=== PATIENT | male | born 2000 | race Two or more races ===

== ENCOUNTER 2024-07-21 14:18 | Inpatient (IN) | payer MEDICAID, OTHER ==
[~2024-07-21] VITALS: Ht 172.7 cm; Wt 87.7 kg
--- NOTE | 2024-07-21 14:54 | ED.PDOC ---
GI ASSESSMENT HPI Comments 23y M who presents to the ED for chief complaint of rectal pain. Pt states last night PM, he noticed a ingrown hair and irregularity on the R side of his rectum with noted rectal pain. Pt states he is pain pain when sitting down. Pt otherwise denies constipation, diarrhea, fever, cough, chills, chest pain, or shortness of breath. Pt otherwise denies any other symptoms at this time. Pt has temp of 100.2 F, heart rate of 112, and BP of 91/56 with otherwise all other vitals in normal range. Chief Complaint: Rectal Pain Time Seen by MD: 14:51 Primary Care Provider: VIPIN Reviewed Notes: Nurses Notes, Medications, Allergies Allergies: Coded Allergies: Latex (Verified Allergy, Severe, 07/21/24) Information Source: Patient Mode of Arrival: Ambulatory Brought in by: self Timing: Hours Duration: Since onset Prehospital treatment: None Quality: None Vomitus: None Stool: Normal Severity: Moderate Recent: None Recent Hx of: None Pain Location: Other (rectal pain) Modifying Factors: Position Associated sign and symptoms: None Past Medical History PAST MEDICAL HISTORY: Denies Surgical History (Other): congenital heart surgery Family History Family History: Reviewed,noncontributory to illness Social History Smoker: Non-Smoker Alcohol: Denies ETOH Use Drugs: Denies Drug Use Lives In: Home Constitutional: denies: chills, diaphoresis, fatigue, fever, malaise, sweats, weakness, others EENTM: denies: blurred vision, double vision, ear bleeding, ear discharge, ear drainage, ear pain, ear ringing, eye pain, eye redness, hearing loss, mouth pain, mouth swelling, nasal discharge, nose bleeding, nose congestion, nose pain, photophobia, tearing, throat pain, throat swelling, voice changes, others Respiratory: denies: cough, hemoptysis, orthopnea, SOB at rest, shortness of breath, SOB with excertion, stridor, wheezing, others Cardiovascular: denies: chest pain, dizzy spells, diaphoresis, Dyspnea on exertion, edema, irregular heart beat, left arm pain, lightheadedness, palpitations, PND, syncope, others Gastrointestinal: reports: rectal pain; denies: abdomen distended, abdominal pain, blood streaked bowels, constipated, diarrhea, dysphagia, difficulty swallowing, hematemesis, melena, nausea, poor appetite, poor fluid intake, rectal bleeding, vomiting, others Genitourinary: denies: burning, dysuria, flank pain, frequency, hematuria, incontinence, penile discharge, penile sore, pain, testicle pain, testicle swelling, urgency, others Neurological: denies: dizziness, fainting, headache, left sided numbness, left sided weakness, numbness, paresthesia, pre-existing deficit, right sided n umbness, right sided weakness, seizure, speech problems, tingling, tremors, weakness, others Musculoskeletal: denies: back pain, gout, joint pain, joint swelling, muscle pain, muscle stiffness, neck pain, others Integumetry: denies: bruises, change in color, change in hair/nails, dryness, laceration, lesions, lumps, rash, wounds, others Allergic/Immunocompromised: denies: Difficulty Healing, Frequent Infections, Hives, Itching, others Hematologic/Lymphatic: denies: anemia, blood clots, easy bleeding, easy bruising, swollen glands, others Endocrine: denies: excessive hunger, excessive sweating, excessive thirst, excessive urination, flushing, intolerance to cold, intolerance to heat, unexplained weight gain, unexplained weight loss, others Psychiatric: denies: anxiety, bipolar disorder, depression, hopeless, panic disorder, schizophrenia, sleepless, suicidal, others All Other Systems: Reviewed and Negative Physical Exam General Appearance: Moderate Distress HEENT: Normal ENT Inspection, Pharynx Normal, TMs Normal Neck: Full Range of Motion, Non-Tender, Normal, Normal Inspection Respiratory: Chest Non-Tender, Lungs Clear, No Accessory Muscle Use, No Respiratory Distress, Normal Breath Sounds Cardiovascular: No Edema, No JVD, No Murmur, No Gallop, Normal Peripheral Pulses, Regular Rate/Rhythm Breast Exam: Deferred Gastrointestinal: No Organomegaly, Non Tender, No Pulsatile Mass, Normal Bowel Sounds, Soft Genitalia: Deferred Pelvic: Deferred Rectal: Tenderness (Tenderness around the perirectal area but no sign of any fluctuance) Extremities: No calf tenderness, Normal capillary refill, Normal inspection, Normal range of motion, Non-tender, No pedal edema Musculoskeletal : Apperance: Normal Neurologic: Alert, journeyman pressman II-XII nml as Tested, No Motor Deficits, Normal Affect, Normal Mood, No Sensory Deficits Cerebellar Function: Normal Reflexes: Normal Skin: Dry, Normal Color, Warm Lymphatic: No Adenopathy Was a procedure done? Was a procedure done?: No GI differential Dx Differential Diagnosis: Constipation, Stress Ulcer Other Differential Diagnosis hemorrhoids, anal fissure, X-Ray, Labs, Meds, VS Vital Signs Date Time Temp Pulse Resp B/P (MAP) Pulse Ox O2 Delivery O2 Flow Rate FiO2 07/21/24 15:58 98.4 07/21/24 15:58 78 12 125/81 07/21/24 15:10 98 15 98 Room Air* 0 21 07/21/24 15:06 98 15 135/77 07/21/24 15:06 99 18 135/77 (96) 94 07/21/24 15:04 100.2 07/21/24 14:43 100.2 112 18 91/56 (68) 98 100.2 07/21/24 14:43 112 18 98 Room Air 07/21/24 14:39 100.2 112 18 91/56 (68) 98 100.2 Lab Test 07/21/24 15:30 07/21/24 14:53 Range/Units Lactic Acid Level 1.5 0.4-2.0 mmol/L White Blood Count 12.0 H 4.4-10.8 10^3/uL Red Blood Count 5.06 4.5-5.90 10^6/uL Hemoglobin 14.8 13.5-17.5 g/dL Hematocrit 43.1 41.0-53.0 % Mean Corpuscular Volume 85.1 80.0-100.0 fL Mean Corpuscular Hemoglobin 29.3 28.0-32.0 pg Mean Corpuscular Hemoglobin Concent 34.4 32.0-36.0 g/dL Red Cell Distribution Width 13.7 11.8-14.3 % Platelet Count 246 140-450 10^3/uL Mean Platelet Volume 8.3 6.9-10.8 fL Neutrophils (%) (Auto) 65.1 37.0-80.0 % Lymphocytes (%) (Auto) 23.5 10.0-50.0 % Monocytes (%) (Auto) 9.3 0.0-12.0 % Eosinophils (%) (Auto) 1.7 0.0-7.0 % Basophils (%) (Auto) 0.4 0.0-2.0 % Neutrophils # (Auto) 7.8 1.6-8.6 10 ^3/uL Lymphocytes # (Auto) 2.8 0.4-5.4 10 ^3/uL Monocytes # (Auto) 1.1 0-1.3 10 ^3/uL Eosinophils # (Auto) 0.2 0-0.8 10 ^3/uL Basophils # (Auto) 0 0-0.2 10 ^3/uL Nucleated Red Blood Cells 0.1 % Prothrombin Time 10.3 9.3-11.8 sec Prothrombin Time INR 0.97 0.9-1.15 Activated Partial Thromboplast Time 25.8 24.5-34.5 SEC Sodium Level 142 136-145 mmol/L Potassium Level 3.9 3.5-5.1 mmol/L Chloride Level 106 98-107 mmol/L Carbon Dioxide Level 27 20-31 mmol/L Anion Gap 9 5-15 Blood Urea Nitrogen 13 9-23 mg/dL Creatinine 1.12 0.700-1.30 mg/dL Glomerular Filtration Rate Calc 96 >90 mL/min BUN/Creatinine Ratio 11.6 10.0-20.0 Serum Glucose 121 H 74-106 mg/dL Calcium Level 10.1 8.7-10.4 mg/dL Current Medications Medications (Trade) Dose Ordered Sig/Hair Route Start Time Stop Time Status Last Admin Ondansetron HCl (Zofran) 4 mg ONCE ONCE IV 07/21/24 14:45 07/21/24 14:46 DC 07/21/24 15:05 Morphine Sulfate 4 mg ONCE ONCE IV 07/21/24 14:45 07/21/24 14:46 DC 07/21/24 15:06 Sodium Chloride 1,000 ml @ 1,000 mls/hr Q1H ONCE IV 07/21/24 15:15 07/21/24 16:14 DC 07/21/24 15:05 Acetaminophen (Tylenol Tablet) 650 mg ONCE ONCE PO 07/21/24 15:15 07/21/24 15:16 DC 07/21/24 15:04 Scan of the abdomen and pelvis shows a distended stomach but no sign of any masses seen The CBC shows an elevated white blood cell count of 12.0 The rest of the chemistry panel is within normal limits The patient was given 1 L bolus of normal saline The patient was given acetaminophen 650 mg by mouth For the pain, the patient was given morphine 4 mg IV push for the pain The patient was given Zofran 4 mg IV push for the nausea At this time, the patient was still has pain in his being admitted The patient was started on Flagyl IV piggyback Images Reviewed?: Images reviewed and evaluated by me Time of 1ST Reevaluation: 15:20 Reevaluation 1ST: Unchanged Patient Education/Counseling: Diagnosis, Treatment, Prognosis Family Education/Counseling: No Family Present Additional Information -Reviewed patient's previous visit(s): - The following tests were ordered, and results were reviewed by me:cbc, ct abd pelvis non-con, ptptt, bmp, - Additional information was gathered from interviewing the following independent Historian: patient - I reviewed and agreed with the following test results read by other provider: radiologist - I discussed treatments and results with medical personnel and: patient Comprehensive systems review obtained and negative except for what is stated in the HPI. Departure 1 Departure Time of Disposition: 17:28 Impression: Primary Impression: Acute abdominal pain Additional Impressions: Rectal pain Leukocytosis Qualified Codes: D72.829 - Elevated white blood cell count, unspecified Disposition: 09 ADMITTED INPATIENT Admit to: Med Surg Condition: Fair Critical Care Note Critical Care Time?: No Stability Stability form required: Yes Unstable for transfer: ED Physician Assesment (Clinical assesment) Heart Score Heart Score: Heart Score Response (Comments) Value History N/A 0 EKG N/A 0 Age N/A 0 Risk Factors N/A 0 Troponin N/A 0 Total 0 I personally scribed for MICHEAL ORNELAS MD ([email or web address]) on 07/21/24 at 14:54. Electronically submitted by Paresh Zaman ([email or web address]). MICHEAL ORNELAS MD Jul 21, 2024 14:54
[2024-07-21 15:00] LABS: Basophils # (auto) 0 10 ^3/uL (0-0.2); Basophils % (auto) 0.4 % (0.0-2.0); Eosinophils # (auto) 0.2 10 ^3/uL (0-0.8); Eosinophils % (auto) 1.7 % (0.0-7.0); Hematocrit 43.1 % (41.0-53.0); Hemoglobin 14.8 g/dL (13.5-17.5); Lymphocytes # (auto) 2.8 10 ^3/uL (0.4-5.4); Lymphocytes % (auto) 23.5 % (10.0-50.0); Mean Corpuscular Hemoglobin 29.3 pg (28.0-32.0); Mean Corpuscular Hgb Conc. 34.4 g/dL (32.0-36.0); Mean Corpuscular Volume 85.1 fL (80.0-100.0); Monocytes # (auto) 1.1 10 ^3/uL (0-1.3); Monocytes % (auto) 9.3 % (0.0-12.0); Neutrophils # (auto) 7.8 10 ^3/uL (1.6-8.6); Neutrophils % (auto) 65.1 % (37.0-80.0); Nucleated Red Blood Cells % 0.1 %; Platelet Count (auto) 246 10^3/uL (140-450); Red Blood Cells 5.06 10^6/uL (4.5-5.90); Red Cell Distribution Width 13.7 % (11.8-14.3)
[2024-07-21] MEDS: ACETAMINOPHEN 325 MG TAB PO ONE (15:04)
[2024-07-21] MEDS: SODIUM CHLORIDE 0.9% 1,000 ML IV ONE (15:05)
[2024-07-21] MEDS: ONDANSETRON HCL 4 MG/2 ML VIAL IV ONE (15:05)
[2024-07-21] MEDS: MORPHINE SULFATE 4 MG/ML SYR/VIAL IV ONE (15:06)
[2024-07-21 15:07] LABS: Chloride 106 mmol/L (98-107); Potassium 3.9 mmol/L (3.5-5.1); Sodium 142 mmol/L (136-145)
[2024-07-21 15:08] LABS: Anion Gap 9 (5-15); Carbon Dioxide 27 mmol/L (20-31)
[2024-07-21 15:09] LABS: Calcium 10.1 mg/dL (8.7-10.4)
[2024-07-21 15:10] VITALS: PULSE 98; RESP 15; O2SAT 98
[2024-07-21 15:14] LABS: BUN/Creatinine Ratio 11.6 (10.0-20.0); Blood Urea Nitrogen 13 mg/dL (9-23); Glucose 121 mg/dL (74-106)
[2024-07-21 15:15] LABS: INR 0.97 (0.9-1.15); Partial Thromboplastin Time 25.8 SEC (24.5-34.5); Prothrombin Time 10.3 sec (9.3-11.8)
[2024-07-21 15:58] VITALS: BP 125/81; PULSE 78; RESP 12; TEMP 98.4
[2024-07-21] MEDS: IOHEXOL 300 MG/ML 100ML BOTTLE IJ ONE (16:03)
--- NOTE | 2024-07-21 17:25 | DVH ---
Exam: CT CT AB PEL WITH IV CON ONLY History: PAIN COMPARISON: None Technique: Multidetector spiral CT of the abdomen and pelvis was performed from lung bases to pubic s ymphysis. Intravenous contrast was administered during this examination. Portal venous imaging was o btained. Axial, coronal and sagittal multiplanar reformats were performed by the technologist on a [employer] workstation. Radiation Dose : 1. Abdomen/Pelvis: CTDIvol 17.85mGy, DLP 1220.32 mGy*cm. Findings: Lung Bases: No acute or significant lung base finding. Normal heart size. No pleural or pericardial effusion. Liver: Hepatic steatosis. Gallbladder and Biliary Tree: Unremarkable Spleen: Unremarkable Pancreas: The pancreas is normal in appearance without focal lesions or abnormal enhancement. Adrenal Glands: Unremarkable Kidneys: No hydronephrosis. Bladder: Unremarkable Bowel: Distended stomach. Diverticulosis. The appendix is not visualized; however, no secondary findi ngs of acute appendicitis identified. Ascites: Absent Lymphadenopathy: No mesenteric, retroperitoneal or periportal lymphadenopathy. Abdominal Wall and Mesentery: Unremarkable. Vasculature: The visualized abdominal aorta is normal in size and caliber. Abdominal and pelvic vess els demonstrate normal enhancement. Pelvic Organs: Unremarkable Musculoskeletal: No aggressive focal bony lesions, acute fractures or dislocation. IMPRESSION: Distended stomach. Radiation optimization: All CT scans at this facility use at least one of these dose optimization jr hniques: automated exposure control mA and/or kV adjustment per patient size (includes targeted exam s where dose is matched to clinical indication) or iterative reconstruction.
[2024-07-21] MEDS: metroNIDAZOLE 500MG/100ML 100 ML IV ONE (17:56)
[2024-07-21] MEDS ORDERED: NITROGLYCERIN 0.4 MG SL TAB SL PRN (18:45)
[2024-07-21] MEDS ORDERED: MORPHINE SULFATE INJ 2 MG/ml SYRG IV PRN ×2 (18:45)
[2024-07-21] MEDS: D5W/SOD CHLO 0.9% 1,000 ML IV ONE (19:13)
[2024-07-21] MEDS ORDERED: cefTRIAXone 1GM/50ML D5W 50 ML IV ONE (19:15)
--- NOTE | 2024-07-21 19:16 | DVHHPRES ---
History of Present Illness Resident Creating Document: RONNIE MICHELLE RESIDENT History of Present Illness The patient is a 23-year-old male with no known medical history came to the hospital with a chief complaint of pain over addison cleft with erythematous skin with draining pus with severe pain, because of that he was not able to said because of severe pain. An ER visit the patient underwent CT abdomen reassure abdominal distention of stomach, no signs of abscess. An ER visit patient found to have temperature of 100.2, tachycardia, low blood pressure. The patient will be given IV antibiotic with ceftriaxone and metronidazole, surgical consultation, NPO for perineal abscess. The patient will be admitted for IV antibiotic and surgical evaluation. Past medical history non Past surgical history none Home medication now Allergy latex Social history: Nonsmoker, no unusual thoughts. Review of Systems Constitutional: No: Fever, Chills, Sweats, Weakness, Malaise, Other Eyes: No: Pain, Vision change, Conjunctivae inflammation, Eyelid inflammation, Other, Redness ENT: No: Ear pain, Ear discharge, Nose pain, Nose discharge, Nose congestion, Mouth pain, Mouth swelling, Throat pain, Throat swelling, Other Respiratory: No: Cough, Dry, Shortness of breath, SOB with excertion, Wheezing, Hemoptysis, Pleuritic Pain, Sputum, Wheezing, Other Cardiovascular: No: Chest Pain, Palpitations, Orthopnea, Paroxysmal Noc. Dyspnea, Edema, Lt Headedness, Other Gastrointestinal: Other (addison cleft); No: Nausea, Vomiting, Abdominal Pain, Diarrhea, Constipation, Melena, Hematochezia Genitourinary: No Dysuria, No Frequency, No Incontinence, No Hematuria, No Retention, No Other Musculoskeletal: No: other, neck pain, shoulder pain, arm pain, back pain, hand pain, leg pain, foot pain Skin: No: Rash, Lesions, Jaundice, Bruising, Other Neurological: No: Weakness, Numbness, Incoordination, Change in speech, Confusion, Seizures, Other Allergies: Coded Allergies: Latex (Verified Allergy, Severe, 07/21/24) Medications Current Medications Medications Dose Ordered Sig/Hair Route Start Time Stop Time Status Last Admin Dose Admin Morphine Sulfate 2 mg Q4HPRN PRN IV 07/21/24 18:45 Nitroglycerin 0.4 mg Q5MINP PRN SL 07/21/24 18:45 Morphine Sulfate 2 mg Q30M PRN IV 07/21/24 18:45 Metronidazole 100 ml @ 100 mls/hr Q8HR IV 07/21/24 22:00 Amoxicillin/ Clavulanate Potassium 875 mg Q12HR PO 07/21/24 22:00 Exam Vital Signs Vital Signs Date Time Temp Pulse Resp B/P (MAP) Pulse Ox O2 Delivery O2 Flow Rate FiO2 07/21/24 15:58 98.4 07/21/24 15:58 78 12 125/81 07/21/24 15:10 98 Room Air* 0 21 General Appearance: Alert, Oriented X3, Cooperative, No acute distress HEENT: Atraumatic, PERRLA, EOMI, Mucous membr. moist/pink Respiratory: Clear to auscultation, Normal air movement Cardiovascular: Normal S1, Normal S2, No murmurs, Other (Tachycardic) Abdominal: Normal bowel sounds, Soft, No tenderness, Other ( cleft erythema, pus draining, mildly fluctuation ) Extremities: No clubbing, No edema Skin: No rashes, No breakdown, No significant lesion Neuro: Normal speech, Strength at 5/5 X4 ext, Normal tone, Sensation intact Psych/Mental Status: Mental status NL, Mood NL Labs/Xrays Labs Test 07/21/24 15:30 07/21/24 14:53 Range/Units Lactic Acid Level 1.5 0.4-2.0 mmol/L White Blood Count 12.0 H 4.4-10.8 10^3/uL Red Blood Count 5.06 4.5-5.90 10^6/uL Hemoglobin 14.8 13.5-17.5 g/dL Hematocrit 43.1 41.0-53.0 % Mean Corpuscular Volume 85.1 80.0-100.0 fL Mean Corpuscular Hemoglobin 29.3 28.0-32.0 pg Mean Corpuscular Hemoglobin Concent 34.4 32.0-36.0 g/dL Red Cell Distribution Width 13.7 11.8-14.3 % Platelet Count 246 140-450 10^3/uL Mean Platelet Volume 8.3 6.9-10.8 fL Neutrophils (%) (Auto) 65.1 37.0-80.0 % Lymphocytes (%) (Auto) 23.5 10.0-50.0 % Monocytes (%) (Auto) 9.3 0.0-12.0 % Eosinophils (%) (Auto) 1.7 0.0-7.0 % Basophils (%) (Auto) 0.4 0.0-2.0 % Neutrophils # (Auto) 7.8 1.6-8.6 10 ^3/uL Lymphocytes # (Auto) 2.8 0.4-5.4 10 ^3/uL Monocytes # (Auto) 1.1 0-1.3 10 ^3/uL Eosinophils # (Auto) 0.2 0-0.8 10 ^3/uL Basophils # (Auto) 0 0-0.2 10 ^3/uL Nucleated Red Blood Cells 0.1 % Prothrombin Time 10.3 9.3-11.8 sec Prothrombin Time INR 0.97 0.9-1.15 Activated Partial Thromboplast Time 25.8 24.5-34.5 SEC Sodium Level 142 136-145 mmol/L Potassium Level 3.9 3.5-5.1 mmol/L Chloride Level 106 98-107 mmol/L Carbon Dioxide Level 27 20-31 mmol/L Anion Gap 9 5-15 Blood Urea Nitrogen 13 9-23 mg/dL Creatinine 1.12 0.700-1.30 mg/dL Glomerular Filtration Rate Calc 96 >90 mL/min BUN/Creatinine Ratio 11.6 10.0-20.0 Serum Glucose 121 H 74-106 mg/dL Calcium Level 10.1 8.7-10.4 mg/dL Assessment/Plan Assessment/Plan Pilonidal abscess/cyst Septic shock likely due to above Acute abdominal pain likely due to verbal Plan/recommendation -IV antibiotics with ceftriaxone and metronidazole -NPO -Surgical consultation for paranoid abscess/cyst -IV fluid with D5 W/NS 100 mL/hour -pain management: IV morphine -PUD prophylaxis with Protonix Goals of care discussed for greater than 22 minutes, full cor shortness. Plan discussed with Dr. Suh Plan discussed with: Patient, Other (RN) My Orders Orders - RONNIE MICHELLE RESIDENT Procedure Category Date Status Time Admit ADMIT 07/21/24 Transmitted 18:33 Code Status CODE 07/21/24 Transmitted 18:33 Vital Signs [facility] 07/21/24 In Process 18:33 Review Orders With [facility] 07/21/24 Transmitted Adm. 18:33 Notify Of Changes [facility] 07/21/24 Transmitted From Base 18:33 Advance Directive [facility] 07/21/24 Transmitted 18:33 Urinalysis LAB 07/21/24 Logged 18:33 Patient Condition ORDERS 07/21/24 Transmitted 18:33 Allergies [facility] 07/21/24 In Process 18:33 Drug Screen LAB 07/21/24 Logged 18:33 Morphine Sulfate [facility] 07/21/24 In Process Injection 18:45 Nitroglycerin PHA 07/21/24 In Process Sublingual (Ntrostat 18:45 Morphine Sulfate PHA 07/21/24 In Process Injection 18:45 Electrocardigram EKG 07/21/24 Logged 18:33 Metronidazole PHA 07/21/24 In Process 500mg/100ml (Flagyl 22:00 Amoxicillin/Clavulanate PHA 07/21/24 In Process Tablet (Augmenti 22:00 D5w/Sod Chlo 0.9% PHA 07/21/24 In Process (D5w Ns 0.9%) 18:45 Npo After Midnight ORDERS 07/21/24 Transmitted * Surgical Consult CONS 07/21/24 Transmitted Ceftriaxone Ivpb PHA 07/22/24 Transmitted Rocephin 09:00 Ceftriaxone Ivpb PHA 07/21/24 Transmitted Rocephin 19:15 Date of Service: Jul 21, 2024 Billing Provider: JOY SUH MD Common Visit Codes: [id number] INP/OBS CARE (HIGH) RONNIE MICHELLE RESIDENT Jul 21, 2024 19:16 JOY SUH MD Jul 22, 2024 10:49
[2024-07-21 19:35] LABS: Triglycerides 128 mg/dL (< 150)
[2024-07-21 19:36] LABS: LDL Cholesterol 93 mg/dL (< 100)
[2024-07-21 19:37] LABS: Cholesterol 152 mg/dL (< 200); HDL Cholesterol 49 mg/dL (40-59)
--- NOTE | 2024-07-21 20:22 | DVHDSRES ---
Discharge Summary Date of Admission Resident Creating Document: RONNIE MICHELLE RESIDENT Jul 21, 2024 at 18:33 Date of Discharge: Jul 21, 2024 Admitting Diagnosis abscess Labs/Diagnostic Data: Laboratory Results Test 07/21/24 15:30 07/21/24 14:53 Lactic Acid Level 1.5 mmol/L (0.4-2.0) White Blood Count 12.0 10^3/uL (4.4-10.8) Red Blood Count 5.06 10^6/uL (4.5-5.90) Hemoglobin 14.8 g/dL (13.5-17.5) Hematocrit 43.1 % (41.0-53.0) Mean Corpuscular Volume 85.1 fL (80.0-100.0) Mean Corpuscular Hemoglobin 29.3 pg (28.0-32.0) Mean Corpuscular Hemoglobin Concent 34.4 g/dL (32.0-36.0) Red Cell Distribution Width 13.7 % (11.8-14.3) Platelet Count 246 10^3/uL (140-450) Mean Platelet Volume 8.3 fL (6.9-10.8) Neutrophils (%) (Auto) 65.1 % (37.0-80.0) Lymphocytes (%) (Auto) 23.5 % (10.0-50.0) Monocytes (%) (Auto) 9.3 % (0.0-12.0) Eosinophils (%) (Auto) 1.7 % (0.0-7.0) Basophils (%) (Auto) 0.4 % (0.0-2.0) Neutrophils # (Auto) 7.8 10 ^3/uL (1.6-8.6) Lymphocytes # (Auto) 2.8 10 ^3/uL (0.4-5.4) Monocytes # (Auto) 1.1 10 ^3/uL (0-1.3) Eosinophils # (Auto) 0.2 10 ^3/uL (0-0.8) Basophils # (Auto) 0 10 ^3/uL (0-0.2) Nucleated Red Blood Cells 0.1 % Prothrombin Time 10.3 sec (9.3-11.8) Prothrombin Time INR 0.97 (0.9-1.15) Activated Partial Thromboplast Time 25.8 SEC (24.5-34.5) Sodium Level 142 mmol/L (136-145) Potassium Level 3.9 mmol/L (3.5-5.1) Chloride Level 106 mmol/L (98-107) Carbon Dioxide Level 27 mmol/L (20-31) Anion Gap 9 (5-15) Blood Urea Nitrogen 13 mg/dL (9-23) Creatinine 1.12 mg/dL (0.700-1.30) Glomerular Filtration Rate Calc 96 mL/min (>90) BUN/Creatinine Ratio 11.6 (10.0-20.0) Serum Glucose 121 mg/dL (74-106) Hemoglobin A1c 5.1 % A1C (<5.7) Calcium Level 10.1 mg/dL (8.7-10.4) Triglycerides Level 128 mg/dL (< 150) Cholesterol Level 152 mg/dL (< 200) LDL Cholesterol 93 mg/dL (< 100) HDL Cholesterol 49 mg/dL (40-59) Thyroid Stimulating Hormone (TSH) 1.09 uIU/mL (0.55-4.78) Other Laboratory Tests 07/21/24 14:53 Brief Hx & Hospital Course: The patient is a 23-year-old male with no known medical history came to the hospital with a chief complaint of pain over addison cleft with erythematous skin with draining pus with severe pain, because of that he was not able to said because of severe pain. An ER visit the patient underwent CT abdomen reassure abdominal distention of stomach, no signs of abscess. An ER visit patient found to have temperature of 100.2, tachycardia, low blood pressure. The patient will be given IV antibiotic with ceftriaxone and metronidazole, surgical consultation, NPO for perineal abscess. The patient will be admitted for IV antibiotic and surgical evaluation. Past medical history non Past surgical history none Home medication now Allergy latex Social history: Nonsmoker, no unusual thoughts. [facility] states they want to leave the Emergency Department Against Medical Advice (AMA). Patient encouraged to stay for further treatment/stabilization. MICHEAL ORNELAS MD notified of patient's wishes. Patient advised of the risks of leaving AMA. Condition at Discharge: Undetermined Final Diagnosis/Problems List Pilonidal abscess/cyst Septic shock likely due to above Acute abdominal pain likely due to verbal Discharge Disposition: AMA Discharge Statement: "Patient was advised to return to the ER or call 911 if any headaches, dizziness, shortness of breath, chest pain, abdominal pain, bleeding, fevers, or worsening of medical condition. Patient was counseled about treatment plan, medications, possible side effects, patientverbalized understanding. All questions were answered to the best of my ability. This discharge took greater then 30 minutes in planning, reviewing documentation, counseling the patient, and discussing with other team members." ASSESSMENT ASSESSMENT Assessment Date of Service: Jul 21, 2024 Billing Provider: JOY CARDENAS MD Common Visit Codes: 20838-AIC/OBS DISCH DAY <30MIN RONNIE MICHELLE RESIDENT Jul 21, 2024 20:22 JOY CARDENAS MD Jul 22, 2024 10:52
[2024-07-21] MEDS ORDERED: AMOXICILLIN/CLAVUL 875 MG TAB PO SCH (22:00)
[2024-07-21] MEDS ORDERED: metroNIDAZOLE 500MG/100ML 100 ML IV SCH (22:00)
[2024-07-22] MEDS ORDERED: cefTRIAXone 1GM/50ML D5W 50 ML IV SCH (09:00)
== END 2024-07-21 19:20 | disposition left against medical advice (07) | DRG 871 ==
LOC: ER 14:18 → OVERFLOW 18:33
PROVIDERS: ADMIT Internal Medicine; ATTEND Internal Medicine
DX: A41.9 Sepsis, unspecified organism (principal); R65.21 Severe sepsis with septic shock; L05.01 Pilonidal cyst with abscess; D72.829 Elevated white blood cell count, unspecified; Z53.29 Procedure and treatment not carried out because of patient's decision for other reasons
CPT/HCPCS: 36415; 74177; 80048; 80061; 83036; 83605; 84443; 85025; 85610; 85730; 87040; 96361; 96374; 96375; G0378; J2405; J3490